=== PATIENT | female | born 1990 | race Caucasian/White ===

== ENCOUNTER 2017-03-07 13:25 | Inpatient (IN) | payer OTHER ==
[~2017-03-07] VITALS: Ht 175.3 cm; Wt 81.0 kg
--- NOTE | ~2017-03-07 | OR ---
PATIENT'S NAME: LIBORIO [facility] AGE: 26 [address] 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 She is 36 weeks gestation and group B strep is collected. Nonstress test in the office was reactive and reassuring and she was beth every 2 minutes. She went home to pack her bag and came back to the office and was 7 cm dilated. She is 80% effaced and -1 station with a bulging bag of water. She is brought to Labor and Delivery and a labor epidural was placed and group B strep prophylaxis was begun because of unknown group B strep status. Her care had been uncomplicated. She progressed to a rim and I ruptured her membranes. Clear fluid was noted. When she got to complete and +1 to +2 station, she pushed for about 50 minutes. She delivered in ROP position. Shoulders and body were easily delivered. Baby girl lets out a spontaneous cry. She was placed on the maternal abdomen. She received score of 8 and 9. Cord was doubly clamped and cut and the placenta delivered spontaneously and intact. Cervix and vagina are intact. Second-degree laceration is repaired in the usual fashion with 2-0 chromic. Periurethral regions and vagina and cervix are all intact. Rectal exam confirms rectal sphincter is intact. There is normal lochia. Sponge and needle counts are correct. Mom and baby are doing well in recovery. YESI CERON MD KHP/modl /[id number] d: 03/08/17 0001 t: 03/13/17 0857, OPERATIVE SUMMARY
[2017-03-07 14:01] LABS: BASOPHIL % 0.1 %; EOSINOPHIL % 0.2 %; HEMATOCRIT 38.2 % (33.0-46.0); IMMATURE GRANULOCYTE # 0.1 K/uL (0.0-0.3); IMMATURE GRANULOCYTE % 0.5 %; LYMPHOCYTE # 1.4 K/uL (0.8-4.0); MCH 30.1 pg (27.0-34.0); MCV 88.4 fl (83.0-98.0); MONOCYTE # 0.7 K/uL (0.0-1.0); MONOCYTE % 5.2 %; MPV 10.5 fl (9.4-12.4); NEUTROPHIL # (ANC) 10.7 K/uL (1.8-7.8); NRBC % 0 /100WBC (0-0.00); PLATELET COUNT 199 K/uL (150-450); RBC 4.32 M/uL (3.50-5.00); RDW-CV 12.6 % (11.9-14.6); WBC 12.8 K/uL (4.0-11.0)
[2017-03-07] MEDS ORDERED: PRENATAL 1+1)(P1 TAB PO (14:10)
[2017-03-08 04:34] LABS: BASOPHIL % 0.3 %; EOSINOPHIL # 0.1 K/uL (0.0-0.5); EOSINOPHIL % 0.7 %; HEMATOCRIT 34.3 % (33.0-46.0); HEMOGLOBIN 11.8 g/dL (11.0-15.0); IMMATURE GRANULOCYTE # 0.1 K/uL (0.0-0.3); IMMATURE GRANULOCYTE % 0.4 %; LYMPHOCYTE # 1.6 K/uL (0.8-4.0); LYMPHOCYTE % 10.7 %; MCH 30.8 pg (27.0-34.0); MCHC 34.4 gm/dL (32.0-36.5); MCV 89.6 fl (83.0-98.0); MONOCYTE # 1.1 K/uL (0.0-1.0); MONOCYTE % 7.5 %; MPV 10.7 fl (9.4-12.4); NEUTROPHIL % 80.4 %; NRBC % 0 /100WBC (0-0.00); PLATELET COUNT 171 K/uL (150-450); RBC 3.83 M/uL (3.50-5.00); RDW-CV 12.8 % (11.9-14.6); WBC 14.9 K/uL (4.0-11.0)
--- NOTE | 2017-03-08 05:32 | NUR ---
vss. pt voiding w/out difficulty. fundus firm, -2, small flow. last had motrin at 2010 and percocet at 329.
--- NOTE | 2017-03-08 17:17 | NUR ---
Last VS: T:97.7 P:89 R: 16 BP: 112/65 Pain ratin. Last pain med: Motrin Medicated at: Effective: Yes Breasts: SOFT, Nipples: NO PROBLEM, USING NIPPLE OINTMENT Fundus:,FIRM -2 , Lochia: SM, Epis/Perineum: TENDER, USES DERMOSPLAST, TUCKS, TEA PADS, , Voiding well: YES Significant event: *.UP IN ROOM. BC SHEET AT BEDSIDE.
[2017-03-09] MEDS ORDERED: SURFAK240 MG PO (11:00)
[2017-03-09] MEDS ORDERED: MOTRIN800 MG PO (11:00)
[2017-03-09] MEDS ORDERED: NORCO 5-325 TA1 EACH PO (11:01)
== END 2017-03-09 11:35 | disposition disaster alternative care site (69) | DRG 775 ==
LOC: EDBD 13:25 → GOBM 13:25 → GOBS 13:25 → GOBM 13:26 → GOBS 03-09 11:35
PROVIDERS: ADMIT Obstetrics & Gynecology
PROC: 0KQM0ZZ Repair Perineum Muscle, Open Approach (ICD-10-PCS; principal; 2017-03-07)
PROC: 10E0XZZ Delivery of Products of Conception, External Approach (ICD-10-PCS; principal; 2017-03-07)
PROC: 10907ZC Drainage of Amniotic Fluid, Therapeutic from Products of Conception, Via Natural or Artificial Opening (ICD-10-PCS; principal; 2017-03-07)
DX: O60.14X0 Preterm labor third trimester with preterm delivery third trimester, not applicable or unspecified (principal); O70.1 Second degree perineal laceration during delivery; Z3A.36 36 weeks gestation of pregnancy; Z37.0 Single live birth
CPT/HCPCS: J2001; J2540; J2590; J3010; J7120